=== PATIENT | male | born 1955 | race Caucasian/White ===

== ENCOUNTER 2017-12-06 03:04 | Outpatient (CLI) | payer OTHER, SELFPAY ==
[2017-12-06 11:23] LABS: Iron 112 ug/dL (50-175); Total Iron Binding Capacity 328 ug/dL (250-450); Transferrin Sat 34 % (20-55)
[2017-12-06 11:36] LABS: Cholesterol 187 mg/dL (50-200); Ferritin 421 ng/mL (8-388); Glucose 129 mg/dL (70-100); HDL Cholesterol 65 mg/dL (40-60); LDL CHOLESTEROL 111 mg/dL (<100); Triglyceride 42 mg/dL (30-150)
[2017-12-06 11:48] LABS: Hemoglobin A1C 5.9 % (4.5-6.2)
== END 2017-12-06 03:24 ==
PROVIDERS: Family Provider Neuromusculoskeletal Medicine & OMM; PCP Family Medicine; Visit Provider Family Medicine
DX: I10 Essential (primary) hypertension (principal); Z83.3 Family history of diabetes mellitus
CPT/HCPCS: 36415; 80061; 82947; 83721; 82728; 83036; 83540; 83550

== ENCOUNTER 2019-02-13 16:43 | Emergency (ER) | payer OTHER, SELFPAY ==
[2019-02-13 16:50] VITALS: BP 187/90; PULSE 117; RESP 20; TEMP 36.4; O2SAT 96
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
[2019-02-13] MEDS: Acetaminophen 500 MG TAB 1000 MG PO (17:19)
[2019-02-13] MEDS: Bupivacaine 0.5% Pres-Free 30 ML VIAL (18:00)
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
[2019-02-13] MEDS: Cephalexin 500 MG CAP PO (18:53)
== END 2019-02-13 19:00 | disposition home or self-care (01) ==
PROVIDERS: Emergency Provider Student in an Organized Health Care Education/Training Program; PCP Family Medicine
DX: S01.312A Laceration without foreign body of left ear, initial encounter (principal); S00.83XA Contusion of other part of head, initial encounter; R51 Headache; I10 Essential (primary) hypertension; Y04.0XXA Assault by unarmed brawl or fight, initial encounter; Y99.0 Civilian activity done for income or pay
CPT/HCPCS: 12011; 90471; 99284; 70450; 72125

== ENCOUNTER 2019-03-08 09:57 | Emergency (ER) | payer OTHER, SELFPAY ==
[2019-03-08 10:02] VITALS: BP 163/80; PULSE 86; RESP 18; TEMP 36.2; O2SAT 96
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
== END 2019-03-08 11:05 | disposition home or self-care (01) ==
PROVIDERS: Emergency Provider Physician Assistant; PCP Family Medicine
DX: S01.312D Laceration without foreign body of left ear, subsequent encounter (principal); Y04.0XXD Assault by unarmed brawl or fight, subsequent encounter; Z48.01 Encounter for change or removal of surgical wound dressing; I10 Essential (primary) hypertension

== ENCOUNTER 2019-04-25 10:00 | Outpatient (CLI) | payer OTHER, SELFPAY ==
[2019-04-25 11:32] LABS: Anion Gap 8.4 mmol/L (3-11); BUN 18 mg/dL (7-18); CO2 28.6 mmol/L (21.0-32.0); CREATININE 0.93 mg/dL (0.70-1.30); Calcium 9.8 mg/dL (8.5-10.1); Chloride 102 mmol/L (98-107); Glucose 120 mg/dL (74-106); Potassium 4.6 mmol/L (3.5-5.1); Sodium 139 mmol/L (136-145)
== END 2019-04-25 10:20 ==
PROVIDERS: PCP Family Medicine; Visit Provider Family Medicine
DX: E87.5 Hyperkalemia (principal); R73.03 Prediabetes; Z83.3 Family history of diabetes mellitus
CPT/HCPCS: 36415; 80048; 83036

== ENCOUNTER 2020-05-04 15:03 | Outpatient (REF) | payer OTHER, SELFPAY ==
[2020-05-04 14:38] LABS: ALT 65 U/L (16-63); AST 27 U/L (15-37); Albumin 4.5 g/dL (3.4-5.0); Alkaline Phosphatase 78 U/L (46-116); Anion Gap 8.9 mmol/L (3-11); BUN 25 mg/dL (7-18); Bilirubin, Total 0.6 mg/dL (0.2-1.0); CO2 25.1 mmol/L (21.0-32.0); CREATININE 1.1 mg/dL (0.70-1.30); Calcium 9.6 mg/dL (8.5-10.1); Chloride 103 mmol/L (98-107); Glucose 130 mg/dL (74-106); Sodium 137 mmol/L (136-145); Total Protein 8.2 g/dL (6.4-8.2)
[2020-05-04 14:47] LABS: Hemoglobin A1C 6.1 % (<5.7)
[2020-05-04 20:27] LABS: PSA, Screening 0.7 ng/mL (0.0-4.5)
== END 2020-05-04 15:04 | disposition home or self-care (01) ==
LOC: LBN 15:03
PROVIDERS: PCP Family Medicine; Visit Provider Nurse Practitioner Family
DX: R73.03 Prediabetes (principal); Z00.00 Encounter for general adult medical examination without abnormal findings; I10 Essential (primary) hypertension
CPT/HCPCS: 80053; 84153; 83036

== ENCOUNTER 2020-05-06 00:58 | Outpatient (CLI) | payer OTHER, SELFPAY ==
--- NOTE | 2020-05-06 08:15 | DI.RAD_ITS ---
EXAM: XR CERVICAL SPINE COMP 4-5V CLINICAL HISTORY: cervical pain,M54.2. TECHNIQUE: 2D digital imaging was performed. COMPARISON: No exams were available for comparison FINDINGS: The odontoid is intact. The lateral masses are well aligned. There is normal alignment of the cervi farooq spine. There are endplate osteophytes from C2-3 through C6-C7. There is moderate neural foramin al narrowing at the left at C5-C6 and mild narrowing at C6-C7. There is mild neural foraminal narrow ing on the right at C6-C7. No acute fracture or subluxation. The prevertebral soft tissues are unre markable. IMPRESSION: Moderate degenerative changes in the cervical spine as described. DATA REPOSITORY: RADIATION DOSE DELIVERED:
== END 2020-05-06 00:59 | disposition home or self-care (01) ==
PROVIDERS: PCP Family Medicine; Visit Provider Nurse Practitioner Family
DX: M47.812 Spondylosis without myelopathy or radiculopathy, cervical region (principal)
CPT/HCPCS: 72050

== ENCOUNTER → 2020-07-22 09:55 | Outpatient (BNVA) | payer OTHER, SELFPAY | PROVIDERS: PCP Family Medicine; Referring Provider Family Medicine; Visit Provider Physical Therapy Assistant | DX: Z12.11 Encounter for screening for malignant neoplasm of colon (principal); I10 Essential (primary) hypertension ==

== ENCOUNTER 2020-08-02 21:50 | Outpatient (REF) | payer OTHER, SELFPAY ==
[2020-08-02 21:23] LABS: Calculated LDL 142 mg/dL (<100); Cholesterol 215 mg/dL (<200); HDL Cholesterol 46 mg/dL (40-60); Triglyceride 138 mg/dL (<150)
== END 2020-08-02 21:51 | disposition home or self-care (01) ==
LOC: LBN 21:50
PROVIDERS: PCP Family Medicine; Visit Provider Nurse Practitioner Family
DX: E78.5 Hyperlipidemia, unspecified (principal)
CPT/HCPCS: 80061

== ENCOUNTER 2020-08-04 04:13 | Outpatient (CLI) | payer OTHER, SELFPAY ==
[2020-08-04 10:55] LABS: Source Nasal/Nares
[2020-08-04 15:50] LABS: COVID-19 PCR Negative (Negative)
== END 2020-08-04 04:14 | disposition home or self-care (01) ==
LOC: LBO 04:14
PROVIDERS: PCP Family Medicine; Visit Provider Surgery
DX: Z20.822 Contact with and (suspected) exposure to COVID-19 (principal); Z01.818 Encounter for other preprocedural examination
CPT/HCPCS: 87635

== ENCOUNTER 2020-08-06 11:08 | Day surgery (SDC) | payer OTHER, SELFPAY ==
--- NOTE | 2020-08-06 11:08 | W.ANESPRE ---
General Info Date of Service Date Performed: 08/06/20 Height: 5 ft 10 in Weight: 104.326 kg Body Mass Index (BMI): 33.0 Surgical Procedure: Operation Date: 08/06/20 11:50 Proposed Procedures Side Surgeon an Dorantes DO Meds Allergies and Home Medications Allergies Allergy/AdvReac Type Severity Reaction Status Date / Time No Known Allergies Allergy Unverified 08/06/20 11:21 Home Medication Medication Instructions Recorded lisinopril 20 mg tablet 20 mg PO BID #180 tab 08/02/20 Current Visit Medications: Current Medications Generic Name Dose Route Start Last Admin Trade Name Freq PRN Reason Stop Dose Admin Ringer's Solution 1,000 mls @ 80 mls/hr 08/06/20 06:00 IV 09/04/20 23:59 INFUSION MARÍA IV Miscellaneous Supplies 1 each 08/06/20 06:00 Iv Access IV 09/04/20 23:59 DIRECTED MARÍA Sodium Chloride 0 ml 08/06/20 06:00 Normal Saline Flush 10 Ml Syr IV 09/04/20 23:59 PRN PRN Sodium Chloride 0 ml 08/06/20 06:00 Normal Saline 10 Ml Vial IJ 09/04/20 23:59 DIRECTED PRN Sterile Water 0 ml 08/06/20 06:00 Water,Injection,Sterile 10 Ml Vial IJ 09/04/20 23:59 DIRECTED PRN PFSH Active Problems Active Problems: Problem Status Onset Code Essential hypertension I10 Hyperlipidemia E78.5 Neck pain M54.2 Prediabetes R73.03 Contusion of head S00.93XA Muscle spasms of neck M62.838 Family history of diabetes mellitus in father 11/30/17 Z83.3 Medical History Medical History (Updated 08/06/20 @ 12:13 by Jennifer Dorantes DO) Essential hypertension History of chronic pain Hyperlipidemia Hypertension (11/30/17) Prediabetes Surgical History Surgical History History of hernia repair Tobacco Smoking/Tobacco Use Status: Former Tobacco Use Tobacco: How many years used: 20 Smokeless tobacco user: chewing tobacco and snuff Passive smoking exposure: Yes Alcohol Alcohol Intake: current Alcohol intake frequency: 0-2 drinks per day Alcohol type: beer Substance Use Substance use: Never Substance use type: does not use Vital Signs and Lab Results Manually Entered Vital Signs Most Recent Manually Entered Vital Signs: Adult Blood Pressure: 167/94 Heart Rate: 76 Respirations: 18 Oxygen Saturation (%): 97 Temperature (C): 36.7 C Lab Results Blood Type / Crossmatch: No Data to Display Complete Blood Count: White Blood Count 7.24 k/cumm (4.4-10.8) 10/29/17 10:50 10/29/17 Red Blood Count 5.03 m/cumm (4.50-6.00) 10/29/17 10:50 10/29/17 Hemoglobin 15.8 g/dL (13.5-17.5) 10/29/17 10:50 10/29/17 Hematocrit 45.3 % (40.0-50.0) 10/29/17 10:50 10/29/17 Platelet Count 221 x1000/uL (130-400) 10/29/17 10:50 10/29/17 Complete Metabolic Panel: Sodium Level 137 mmol/L (136-145) 05/04/20 11:05/04/20 Potassium Level 4.0 mmol/L (3.5-5.1) 05/04/20 11:05/04/20 Chloride Level 103 mmol/L (98-107) 05/04/20 11:05/04/20 Carbon Dioxide Level 25.1 mmol/L (21.0-32.0) 05/04/20 11:05/04/20 Blood Urea Nitrogen 25 mg/dL (7-18) H 05/04/20 11:05/04/20 Creatinine 1.1 mg/dL (0.70-1.30) 05/04/20 11:05/04/20 Magnesium Level 2.3 mg/dL (1.8-2.4) 10/29/17 10:50 10/29/17 Calcium Level 9.6 mg/dL (8.5-10.1) 05/04/20 11:05/04/20 Albumin 4.5 g/dL (3.4-5.0) 05/04/20 11:05/04/20 Glucose Level 130 mg/dL (74-106) H 05/04/20 11:05/04/20 Hemoglobin A1c 6.1 % (<5.7) H 05/04/20 11:02 05/04/20 Liver Function Panel: Alanine Aminotransferase (ALT/SGPT) 65 U/L (16-63) H 05/04/20 11:02 05/04/20 Aspartate Amino Transf (AST/SGOT) 27 U/L (15-37) 05/04/20 11:02 05/04/20 Coagulation Panel: No Data to Display Cardiac Panel: Troponin I 0.04 ng/mL (0.00-0.06) 10/29/17 13:55 10/29/17 Arterial Blood Gas: No Data to Display Venous Blood Gas: No Data to Display Pancreas Panel: No Data to Display Thyroid Panel: Thyroid Stimulating Hormone (TSH) 2.16 uIU/mL (0.358-3.74) 10/29/17 10:50 10/29/17 Infectious Disease: Coronavirus (COVID-19)(PCR) Negative (Negative) 08/04/20 08:49 08/04/20 Coronavirus 2019 Source Nasal/nares 08/04/20 08:49 08/04/20 Syphilis Serology Negative (Negative) 10/29/17 10:50 10/29/17 Blood Cultures: No Data to Display Toxicology Panel: No Data to Display Anesthesia Assessment and Plan Anesthesia History Personal History: No History of Anesthesia Complications Family History: No Family History of Anesthesia Complications Exercise Tolerance Exercise Tolerance: Metabolic Equivalents>4 Pertinent Negatives Pertinent Negatives: No Symptoms of GERD, No Major Cardiovascular Symptoms or Complaints, No Major Pulmonary Symptoms or Complaints (+snores) and No History of CVA/TIA Cardiac & Pulmonary Exam Cardiac Exam: Normal S1/S2 Heart Sounds Pulmonary Exam: Clear Bilateral Breath Sounds Airway Exam Known Difficult Airway: No Mallampati Class: 2 Mouth Opening: Normal (> 3cm) Thyromental Distance: Less than 3 cm Neck Range of Motion: Limited ROM Neck Circumference: Normal Teeth Condition: Loose or Chipped (Several teeth chipped per patient) ASA Classification ASA Score: ASA 2 Emergency Case?: No NPO Status NPO Status: NPO Clears >2 hours, Solids >8 hours Anesthesia Plan Anesthesia Technique: General Anesthesia Airway Planned: Natural Airway Monitors Used: Standard Monitors
[2020-08-06 11:24] VITALS: BP 167/94; PULSE 76; RESP 18; TEMP 36.7; O2SAT 97
[2020-08-06] MEDS: Lactated Ringers 1,000 ML 80 ML IV (11:40)
[2020-08-06 11:43] VITALS: BP 167/94; PULSE 76; RESP 18; TEMPC 36.7; O2SAT 97
--- NOTE | 2020-08-06 11:55 | BOWEL_PTH ---
PATIENT: Leonardo Moore JR LOC: [facility] U#:[id number] AGE/SX: 65/M ROOM: RE08/06/[address]: Jennifer Dorantes : 1955 BED: DIS: 08/06/2020 SPEC #: [id number] RECD: 08/06/20 12:59 STATUS: ELIAS REQ #: [id number] CONRAD: 08/06/20 11:[address]: Jennifer Dorantes DEPT: Surgical Specimen RECD BY: Padmaja Rice ENTERED: 08/06/20 12:59 SP TYPE: Bowel OTHR DR: Cal Norwood MD Tissues: 1 - BIOPSY BOWEL Procedures: GROSS AND MICRO LEVEL 4 Comments: [id number]
--- NOTE | 2020-08-06 12:13 | PDOC.DSDIS_ITS ---
Discharge Plan Disposition Patient Disposition: HOME Condition: Good Discharge Details Reason For Visit: colon scope Attending Provider: Jennifer Dorantes Primary Care Provider: Cal Norwood Home Meds and New Rx's Prescriptions: Continued lisinopril 20 mg tablet 20 mg PO BID Qty: 180 RF: 4 Discontinued bisacodyl [Dulcolax (bisacodyl)] 5 mg tablet,delayed release (DR/EC) 5 mg PO ONCE Qty: 4 RF: 0 polyethylene glycol 3350 17 gram/dose powder 238 g PO ONCE Qty: 238 RF: 0 Discharge Instructions Additional Instructions: DSU Colonoscopy Post- Op Instructions Instructions for Everyone who is given Anesthesia: For your safety, please do the following for the next twenty-four (24) hours: *Do Not operate a motor vehicle (car, truck, motorcycle, etc.) *Do Not drink alcoholic beverages or use any recreational drugs for the first 24 hours or while taking pain medications. The medications in your body may have a reaction that can be dangerous. *Do Not make any important decisions or sign any important papers. Findings: x1 small polyp Follow up: repeat scope in 7yrs time 1. No lifting over 20 pounds or strenuous activity for the first 24 hours after your procedure. After 24 hours there are no restrictions on your activity but you may feel fatigued for a few days. 2. After you arrive home you may have a light meal and return to your normal diet as you can tolerate it without feeling sick to your stomach. 3. You may have a bloated, gaseous feeling in your belly (abdomen) after a colonoscopy. Passing gas and belching will help. Walking or lying down on your left side with your knees flexed may relieve the discomfort. Call the office at [phone] (Office) or [phone] (Hospital) right away if you notice any of the following: a.Vomiting of blood or ?coffee ground stools?. b.Rectal bleeding 1Tbsp, blood clots or continuous bleeding. c.Severe belly (abdominal) pain. d.A hard distended belly (abdomen) and an inability to pass gas. 4. Please don?t expect to have a normal BM (bowel movement) for 2-3 days after your procedure. 5. If there are questions regarding the findings of your procedure, please contact your doctor 6. If you are unable to contact your doctor with a problem, contact the [facility] at [phone]. 7. Continue all your regular medications unless directed otherwise. I understand the above instructions and have no questions. Signature of Patient or Adult Escort Name of Responsible Adult Escort Signature of Nurse Date/Time Activity:: as above Diet:: as above Discharge Orders Discharge Orders: Discharge Order (Routine); Ordered 08/05/20 Ordered By: Jennifer Dorantes DS: Diagnosis Discharge Diagnosis (1) Adenomatous polyps: Status: Acute
[2020-08-06 12:15] VITALS: BP 133/87; PULSE 74; RESP 18; TEMP 37; O2SAT 97
--- NOTE | 2020-08-06 12:16 | W.COLOREPORT ---
Date of service: 08/06/20 Time of Service: 12:16 Colonoscopy Report Date of procedure: 08/06/20 Pre-op diagnosis general: screening Post-op diagnosis procedure note: other (A. polyp) Surgeon: Jennifer Dorantes Anesthesia Type: General:No Airway Estimated blood loss (mL): 1 Pathology: other Complications: None Disposition: same day Retraction Time: 9 Procedure Description: After informed consent was obtained the patient was taken to the procedure room and placed in a left decubitous position. Monitors were applied and a time out was done. The patients name, date of , procedure, allergies to medications and metal in their body was reviewed. The patient was then sedated. Once sedated and comfortable a rectal exam was done. External exam was normal. Internal exam revealed a normal sphincter tone and no palpable masses. The scope was then introduced and retrofelexed. No internal hemorrhoids were identified. The scope was then advanced to the cecum w/ out difficulty. The TI and appendiceal orifice were identified. The prep was good. The scope was then slowly retracted over 9 minutes back into the rectum. Polyps were removed at 20cm. There was a small flat 5 mm polyp at 20 cm. This is removed with cold biopsy forcep. All specimen is retrieved and no bleeding is noted. There are no diverticula or AVMs visualized today. The mucosa is pink and healthy. The scope was removed and the patient was woken up and taken back to Same day surgery in stable condition. The patient tolerated the procedure well and there were no immediate complications. Follow up: The patient should follow up in 7 years unless they develop changes in bowel habits or other new gastrointestinal complaints.
--- NOTE | 2020-08-06 12:16 | W.ANESPOSTOP ---
Postoperative Evaluation Date, Time and Location Date Performed: 08/06/20 Time Performed: 12:16 Patient Location: Day Surgery Unit Vital Signs Most Recent Imported Vital Signs: Most Recent Vital Signs Temp Pulse Resp BP Pulse Ox 36.7 C 76 18 167/94 H 97 08/06/20 11:24 08/06/20 11:24 08/06/20 11:24 08/06/20 11:24 08/06/20 11:24 Most Recent Manually Entered Vital Signs: Adult Blood Pressure: 133/87 Heart Rate: 74 Respirations: 12 Oxygen Saturation (%): 98 Temperature (C): 36.4 C Pain Score (0-10 Scale): 0 Pain Score Most Recent Pain Score: Most Recent Pain Score Pain Level 2 08/06/20 11:24 Assessment Mental Status: Awake (Alert & Oriented to Patient Baseline) Airway and Respiratory Function: Patent airway with normal (patient baseline) respiratory exam Cardiovascular Function: Hemodynamically Stable Hydration Status: Adequately Hydrated Nausea & Vomiting: No Nausea or Vomiting Pain: Pt. Denies Any Pain Peripheral Nerve Block: Patient did not receive a nerve block
[2020-08-06 12:17] VITALS: BP 133/87; PULSE 74; RESP 12; TEMPC 36.4; O2SAT 98
[2020-08-06 12:18] VITALS: BMI 33.0
[2020-08-06 12:49] VITALS: BP 149/89; PULSE 83; RESP 18; TEMP 36.4; O2SAT 95
--- NOTE | 2020-08-06 13:11 | W.ANESPOSTOP ---
Postoperative Evaluation Date, Time and Location Date Performed: 08/06/20 Time Performed: 13:11 Patient Location: Day Surgery Unit Vital Signs Most Recent Imported Vital Signs: Most Recent Vital Signs Temp Pulse Resp BP Pulse Ox 36.4 C L 83 18 149/89 H 95 08/06/20 12:49 08/06/20 12:49 08/06/20 12:49 08/06/20 12:49 08/06/20 12:49 Most Recent Vital Signs Temp Pulse Resp BP Pulse Ox 36.7 C 76 18 167/94 H 97 08/06/20 11:24 08/06/20 11:24 08/06/20 11:24 08/06/20 11:24 08/06/20 11:24 Most Recent Manually Entered Vital Signs: Adult Blood Pressure: 139/87 Heart Rate: 82 Respirations: 16 Oxygen Saturation (%): 94 Temperature (C): 36.5 C Pain Score (0-10 Scale): 0 Pain Score Most Recent Pain Score: Most Recent Pain Score Pain Level 0 08/06/20 12:49 Assessment Mental Status: Awake (Alert & Oriented to Patient Baseline) Airway and Respiratory Function: Patent airway with normal (patient baseline) respiratory exam Cardiovascular Function: Hemodynamically Stable Hydration Status: Adequately Hydrated Nausea & Vomiting: No Nausea or Vomiting Pain: Pt. Denies Any Pain Peripheral Nerve Block: Patient did not receive a nerve block
[2020-08-06 13:12] VITALS: BP 139/87; PULSE 82; RESP 16; TEMPC 36.5; O2SAT 94
== END 2020-08-06 13:28 | disposition home or self-care (01) ==
PROVIDERS: PCP Family Medicine; Visit Provider Surgery
PROC: 0DJD8ZZ Inspection of Lower Intestinal Tract, Via Natural or Artificial Opening Endoscopic (ICD-10-PCS; CPT 45378; principal; 2020-08-06 11:45)
DX: Z12.11 Encounter for screening for malignant neoplasm of colon (principal); K63.5 Polyp of colon; I10 Essential (primary) hypertension; R73.03 Prediabetes
CPT/HCPCS: 45380; 88305; J2001

== ENCOUNTER 2021-06-14 01:41 | Outpatient (CLI) | payer MEDICARE, SELFPAY ==
[2021-06-14 13:13] LABS: Hemoglobin A1C 6.3 % (<5.7)
[2021-06-14 13:37] LABS: Anion Gap 9.1 mmol/L (3-11); BUN 13 mg/dL (7-18); CO2 26.9 mmol/L (21.0-32.0); CREATININE 0.9 mg/dL (0.70-1.30); Calcium 9.3 mg/dL (8.5-10.1); Calculated LDL 116 mg/dL (<100); Chloride 103 mmol/L (98-107); Cholesterol 188 mg/dL (<200); Glucose 116 mg/dL (74-106); HDL Cholesterol 48 mg/dL (40-60); Potassium 4.3 mmol/L (3.5-5.1); Sodium 139 mmol/L (136-145); Triglyceride 123 mg/dL (<150)
== END 2021-06-14 01:42 | disposition home or self-care (01) ==
LOC: LBO 01:41
PROVIDERS: PCP Nurse Practitioner Family; Visit Provider Nurse Practitioner Family
DX: E78.5 Hyperlipidemia, unspecified (principal); R73.03 Prediabetes
CPT/HCPCS: 36415; 80048; 80061; 83036

== ENCOUNTER 2022-05-15 10:18 | Outpatient (CLI) | payer MEDICARE, SELFPAY ==
[2022-05-15 13:08] LABS: Hemoglobin A1C 6.2 % (<5.7)
[2022-05-15 13:10] LABS: ALT 35 U/L (16-63); AST 21 U/L (15-37); Albumin 4.1 g/dL (3.4-5.0); Alkaline Phosphatase 82 U/L (46-116); Anion Gap 7.3 mmol/L (3-11); BUN 17 mg/dL (7-18); Bilirubin, Total 0.6 mg/dL (0.2-1.0); CO2 26.7 mmol/L (21.0-32.0); Calcium 9.6 mg/dL (8.5-10.1); Calculated LDL 131 mg/dL (<100); Chloride 103 mmol/L (98-107); Cholesterol 206 mg/dL (<200); Estimated GFR 81.98 (mL/min/1.73m2); Glucose 132 mg/dL (74-106); HDL Cholesterol 58 mg/dL (40-60); Sodium 137 mmol/L (136-145); Total Protein 7.8 g/dL (6.4-8.2); Triglyceride 85 mg/dL (<150)
== END 2022-05-15 10:19 | disposition home or self-care (01) ==
LOC: LOS 10:18
PROVIDERS: PCP Nurse Practitioner Family; Referring Provider Nurse Practitioner Family; Visit Provider Nurse Practitioner Family
DX: R73.03 Prediabetes (principal); I10 Essential (primary) hypertension; E78.5 Hyperlipidemia, unspecified
CPT/HCPCS: 36415; 80053; 80061; 83036

== ENCOUNTER 2022-06-09 01:00 | Outpatient (CLI) | payer MEDICARE, SELFPAY ==
--- NOTE | 2022-06-09 07:30 | DI.MRI_ITS ---
Exam(s) MR LUMBAR SPINE WO EXAM: MR LUMBAR SPINE WO CLINICAL HISTORY: chronic lower back pain with radiculopathy to BLE,m54.16. TECHNIQUE: Multiplanar multisequence MRI of the Lumbar spine was performed. COMPARISON: No exams were available for comparison FINDINGS: Bones: The last intervertebral disc space is designated the L5/S1 level for the numbering purpose of this examination. The vertebral body heights are well maintained. There is L5 spondylolysis and gra de 1 spondylolisthesis of L5 on S1. The signal characteristics are unremarkable. Cord: The conus tip ends at the L1 level. It is of normal size and signal intensity. T12-L1: No disc herniations or bulges are present. No central spinal canal or neural foraminal stenos is. L1-2: No disc herniations or bulges are present. No central spinal canal or neural foraminal stenosis . L2-3: No disc herniations or bulges are present. No central spinal canal or neural foraminal stenosis . L3-4: No disc herniations or bulges are present. No central spinal canal or neural foraminal stenosis . L4-5: No disc herniations or bulges are present. No central spinal canal or neural foraminal stenosis .There is degenerative disc disease. L5-S1: No disc herniations or bulges are present. There are degenerative changes of the facets. No s ignificant central spinal canal stenosis is present.There is moderately severe bilateral neural jannette inal stenosis. Soft tissues: The visualized SI joints and sacrum are well maintained. The paraspinal soft tissues ar e unremarkable. IMPRESSION: L5 spondylolysis and grade 1 spondylolisthesis of L5 on S1. There is resultant moderately severe armen ateral neural foraminal stenosis at L5-S1. DATA REPOSITORY:
== END 2022-06-09 01:20 ==
LOC: DI 01:00
PROVIDERS: PCP Nurse Practitioner Family; Visit Provider Nurse Practitioner Family
DX: M47.816 Spondylosis without myelopathy or radiculopathy, lumbar region (principal); M48.061 Spinal stenosis, lumbar region without neurogenic claudication; M43.17 Spondylolisthesis, lumbosacral region
CPT/HCPCS: 72148

== ENCOUNTER 2022-11-13 10:31 | Outpatient (CLI) | payer MEDICARE, SELFPAY ==
[2022-11-13 13:51] LABS: Calculated LDL 55 mg/dL (<100); Cholesterol 121 mg/dL (<200); HDL Cholesterol 53 mg/dL (40-60); Triglyceride 68 mg/dL (<150)
== END 2022-11-13 10:32 | disposition home or self-care (01) ==
LOC: LOS 10:31
PROVIDERS: PCP Nurse Practitioner Family; Referring Provider Nurse Practitioner Family; Visit Provider Nurse Practitioner Family
DX: E78.5 Hyperlipidemia, unspecified (principal)
CPT/HCPCS: 36415; 80061

== ENCOUNTER 2022-12-15 01:49 | Outpatient (CLI) | payer MEDICARE, SELFPAY ==
[2022-12-16 22:47] LABS: Chlamydia Result Negative (Negative); GC Result Negative (Negative)
[2022-12-17 13:32] LABS: HIV-1/2 Ag & Ab Screen Negative (Negative)
[2022-12-18 10:00] LABS: HSV Type 1 Ab, IgG Positive (Negative); HSV Type 2 Ab, IgG Positive (Negative)
[2022-12-18 10:51] LABS: Hepatitis C Ab w Rflx HCV PCR Negative (Negative)
[2022-12-19 13:05] LABS: Syphilis IgG w/Reflex Nonreactive (Nonreactive)
== END 2022-12-15 01:50 | disposition home or self-care (01) ==
LOC: LOS 01:49
PROVIDERS: PCP Nurse Practitioner Family; Visit Provider Nurse Practitioner Family
DX: Z11.3 Encounter for screening for infections with a predominantly sexual mode of transmission (principal); Z11.4 Encounter for screening for human immunodeficiency virus [HIV]; Z11.59 Encounter for screening for other viral diseases; Z01.84 Encounter for antibody response examination
CPT/HCPCS: 36415; 86803; 87389; 87491; 87591; 86695; 86696; 86780

== ENCOUNTER 2023-01-05 13:14 | Emergency (ER) | payer MEDICARE, SELFPAY ==
--- NOTE | 2023-01-05 13:15 | RT.EKG_ITS ---
APPROVED REPORT Exam: Resting ECG Reason for Exam: Fever, cough Patient Location: E HR:56 bpm ECG Measurements Heart Rate 56 AXIS MT 184 P 65 QRSd 89 QRS 30 QT 401 T 37 QTc 387 Conclusion Sinus bradycardia...rate< [address] segment or T wave abnormalities to suggest occlusive [place]
[2023-01-05 13:22] VITALS: BP 148/67; PULSE 61; RESP 18; TEMP 36.9; O2SAT 98
--- NOTE | 2023-01-05 14:06 | W.ED.GENAD ---
Discharge Plan Disposition Patient Disposition: Home Discharge Details Clinical Impression: COVID Primary Care Provider: Nohelia Adorno ED Provider: Tera Romero Home Meds and New Rx's Prescriptions: Continued rosuvastatin 10 mg tablet 10 mg PO DAILY Qty: 90 3RF amlodipine 5 mg tablet 5 mg PO DAILY Qty: 90 3RF lisinopril 40 mg tablet 40 mg PO DAILY Qty: 90 3RF Discharge Instructions Instructions: COVID-19 (Coronavirus Disease 2019) (ED) Additional Instructions: You may continue to use snur-sdh-jnxkqga cough and cold medication as appropriate for age and with history of hypertension. Please return immediately if you have a return of fever or significant worsening of symptoms specifically chest pain or shortness of breath otherwise stay well-hydrated and get plenty of rest and follow-up with primary care provider if not improving. Referrals: Nohelia Adorno, [employer] [Primary Care Provider] - (As needed for reassessment or if not improving over the next week) Medical Decision Making Patient presenting to the emergency department for cold symptoms. He reports that 8 days ago he was exposed while at doctor's office to somebody with cold-like symptoms and then approximately 24 hours later he started having sore throat that then progressed to nasal congestion cough and some intermittent shortness of breath with coughing episodes. He states for the first 5 days or so he had fevers but fevers have resolved and cough is actually improving today. He states intermittent headaches and general malaise along with other symptoms. Patient has past medical history of hypertension, hyperlipidemia lipidemia, and radiculopathy in his back. Reviewed patient's about vital signs which are very stable showing no hypotension, no significant tachycardia or tachypnea, afebrile and O2 saturation of 98% on room air. Physical exam is unremarkable for any acute findings and patient is overall very stable and well in appearance given his complaint. We did test patient for COVID which she was COVID-positive. Given that he has had symptoms for 7 days he is not a candidate for antiviral therapy but given that he is also improving I do not feel that he requires significant intervention. Discussed with patient use of kewv-dwb-ionxzdn medication with prescribing Tessalon Perles and albuterol inhaler. Patient refused the prescriptions and stated that he would just use juct-twc-tfaxwmg medication. Otherwise discussed conservative management of COVID along with return and follow-up precautions. After discussion of diagnosis and plan of care patient has no further needs, questions, or concerns and states clear understanding to return to the emergency department for any worsening symptoms. This documentation was generated using Timescape[employer] system, please disregard any oddities of phrase or misspellings. Lab Data Lab results reviewed: Yes I reviewed the patient's lab results. HPI General Mode of arrival: ambulatory. Date/Time Provider Initiated Documentation: 01/05/23 13:21. Limitations to Documentation: no limitations. Information obtained by: patient and RN notes reviewed. History of Present Illness 67 year old M presents to the emergency department with the chief complaint of Cough, congestion, headaches intermittent fever, described as mild and moderate, Patient started experiencing this day(s) (8) and it has been constant. No relieving factors improve symptom(s), No exacerbating factors reported . Patient did receive the following treatments prior to arrival, other (Acetaminophen) Related Data Home Medications Medication Instructions Recorded Confirmed rosuvastatin 10 mg tablet 10 mg PO DAILY #90 tabs 05/15/22 01/05/23 amlodipine 5 mg tablet 5 mg PO DAILY #90 tabs 11/13/22 01/05/23 lisinopril 40 mg tablet 40 mg PO DAILY #90 tabs 11/13/22 01/05/23 Previous Rx's Medication Instructions Recorded rosuvastatin 10 mg tablet 10 mg PO DAILY #90 tabs 05/15/22 amlodipine 5 mg tablet 5 mg PO DAILY #90 tabs 11/13/22 lisinopril 40 mg tablet 40 mg PO DAILY #90 tabs 11/13/22 Allergies Allergy/AdvReac Type Severity Reaction Status Date / Time No Known Allergies Allergy Unverified 12/28/22 10:48 General Stated Complaint: GenMedical DELL: 3 Review of Systems Constitutional Constitutional: Reports chills, Reports fever(s), Reports headache(s) and Reports malaise ENT Ears, Nose, Mouth, and Throat: Reports as per HPI, Reports headache(s), Reports nasal congestion, Reports nasal discharge and Reports sore throat Cardiovascular Cardiovascular: Denies chest pain and Reports dyspnea Respiratory Respiratory: Reports as per HPI, Reports cough and Reports dyspnea Gastrointestinal Gastrointestinal: Reports as per HPI, Denies abdominal pain, Denies diarrhea, Denies nausea and Denies vomiting Integumentary/Breasts Skin/Breast: Denies rash Neurologic Neurologic: Reports headache(s) PFSH All Active Problems COVID (Acute) Essential hypertension (Chronic) Hyperlipidemia (Chronic) Prediabetes (Chronic) Lumbar back pain with radiculopathy affecting lower extremity (Chronic) Obesity (Chronic) Medical History 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 Daughter No problems noted. Daughter No problems noted. Maternal Grandfather No problems noted. Maternal Grandmother Emphysema lung Paternal Grandfather Heart disease Paternal Grandmother , 50s from [place] Heart disease Myocardial infarction Social History Smoking/Tobacco Use Status: Former Tobacco Use tobacco type: smokeless tobacco Quit Date: 04/02/12 Tobacco: How many years used: 10 Smokeless tobacco user: chewing tobacco and snuff Second Hand Exposure: Yes Smoking risk assessment performed?: Yes Alcohol Intake: current Alcohol Intake frequency: a few times a week Alcohol type: beer Drug use: Never Substance use type: does not use Caregiver/Support person: No Household members: none Housing: house Communication Needs: Corrective Lenses Do you need help understanding health information?: Rarely 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 Pets and animals: Yes Pets and animals: cat(s) Sexually active: No Do you think of yourself as: straight/heterosexual Current gender identity: male What is your relationship status?: How often do you talk on the phone with friends or family?: three or more times per week How often do you get together with friends or relatives?: once per week How often do you attend scientology or spiritism services?: decline to answer Do you belong to any clubs or organized social groups?: no Panel score (0-1 are the most socially isolated patients): 1 What type of physical activity do you participate in: walking Duration: 45-60 minutes/day Frequency: 5-6 times per week Raven/Sabianism: None Special raven needs: No Seatbelt use: always Helmet use: Yes Helmet use: sometimes Drive intox or ride w/intox 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: No Do you feel safe at home: Yes Additional Social history: alone' Exam Const General: cooperative, comfortable and no acute distress Orientation: alert and awake HENTN Head: normal to inspection, normocephalic and atraumatic Ears: hearing grossly normal bilaterally and TM's normal bilaterally General nose exam: external nose normal Face and sinus: no erythema and sinus tenderness ethmoid and maxillary Mouth: oral mucosae normal, no drooling, no muffled voice and no trismus Throat: posterior oropharynx normal Neck Neck: normal visual inspection, full ROM, no meningeal signs, trachea midline and supple Resp Effort & Inspection: normal respiratory effort, able to speak in complete sentences and cough Quality of cough: dry Auscultation: clear to auscultation bilaterally Cardio Rate: regular rate Rhythm: regular rhythm Heart Sounds: S1 normal, S2 normal, normal S1 and S2, no click, no gallops, no murmurs and no rubs Skin General skin exam: no rashes or lesions noted and dry skin (warm) Neuro General: patient alert, patient awake, patient oriented x3, gait normal and moves all extremities Cognition: normal cognition Speech: speech normal Course Vital Signs Vital signs: Vital Signs Temperature 36.9 C 01/05/23 13:22 Pulse 61 01/05/23 13:22 Respiratory Rate 18 01/05/23 13:22 Blood Pressure 148/67 H 01/05/23 13:22 Pulse Oximetry 98 01/05/23 13:22 Temperature 36.9 C 01/05/23 13:22 Temperature Source Oral 01/05/23 13:22 Pulse 61 01/05/23 13:22 Respiratory Rate 18 01/05/23 13:22 Respiratory Effort Normal, Non-Labored 01/05/23 13:26 Blood Pressure 148/67 H 01/05/23 13:22 Blood Pressure Position Sitting 01/05/23 13:22 Pulse Oximetry 98 01/05/23 13:22 Oxygen Delivery Method Room Air 01/05/23 13:22 Oxygen Flow Rate 0 01/05/23 13:22
== END 2023-01-05 16:48 | disposition home or self-care (01) ==
PROVIDERS: Emergency Provider Nurse Practitioner Family; PCP Nurse Practitioner Family
DX: U07.1 COVID-19 (principal); R00.1 Bradycardia, unspecified; Z87.891 Personal history of nicotine dependence
CPT/HCPCS: 87426; 87637; 93005; 99283; 93010; 99282

== ENCOUNTER 2023-01-08 04:54 | Outpatient (CLI) | payer MEDICARE, SELFPAY ==
[2023-01-10 11:44] LABS: HSV Type 1 Ab, IgG Positive (Negative); HSV Type 2 Ab, IgG Positive (Negative)
[2023-01-10 20:39] LABS: HSV 1 PCR, B Negative (Negative); HSV 2 PCR, B Negative (Negative)
== END 2023-01-08 04:55 | disposition home or self-care (01) ==
LOC: LOS 04:54
PROVIDERS: PCP Nurse Practitioner Family; Visit Provider Nurse Practitioner Family
DX: R89.4 Abnormal immunological findings in specimens from other organs, systems and tissues (principal)
CPT/HCPCS: 36415; 87529; 86695; 86696

== ENCOUNTER 2025-03-11 00:38 | Outpatient (CLI) | payer MEDICARE, SELFPAY ==
[2025-03-11 08:53] LABS: Hemoglobin A1C 5.9 % (<5.7)
[2025-03-11 09:32] LABS: ALT 23 U/L (10-49); AST 21 U/L (<34); Albumin 4.5 g/dL (3.2-5.0); Alkaline Phosphatase 83 U/L (46-116); Anion Gap 7.5 mmol/L (3-11); BUN 16 mg/dL (9-23); Bilirubin, Total 0.8 mg/dL (0.2-1.2); CO2 29.5 mmol/L (20.0-31.0); Calcium 9.5 mg/dL (8.3-10.6); Chloride 106 mmol/L (98-107); Cholesterol 168 mg/dL (<200); Glucose 126 mg/dL (74-106); HDL Cholesterol 75 mg/dL (>40); Potassium 4.9 mmol/L (3.5-5.1); Sodium 143 mmol/L (136-145); Total Protein 7.6 g/dL (5.7-8.2)
== END 2025-03-11 00:39 | disposition home or self-care (01) ==
LOC: LBO 00:38
PROVIDERS: PCP Family Medicine; Referring Provider Family Medicine; Visit Provider Family Medicine
DX: E78.5 Hyperlipidemia, unspecified (principal); I10 Essential (primary) hypertension; E11.9 Type 2 diabetes mellitus without complications
CPT/HCPCS: 36415; 80053; 80061; 83036